=== PATIENT | male | born 1985 | race Caucasian/White ===

== ENCOUNTER 2016-08-02 17:24 | Emergency (ER) | payer BC ==
--- NOTE | 2016-08-02 17:27 | EDM.PDOC ---
ED HPI GENERAL MEDICAL PROBLEM - General Chief Complaint: Chemical Exposure Stated Complaint: [facility] Time Seen by Provider: 08/02/16 17:27 - History of Present Illness INITIAL COMMENTS - FREE TEXT/NARRATIVE: 30-year-old male brought in by [place] [facility] after having a syncopal type event. Patient was cleaning out a oil tanker truck. The patient noticed it did not smell right, perhaps a little stronger than normal. The truck came from [place]. It was reported to the patient that it was freshwater in the tank. Then it was reported that it was flow back water. The patient had loss of consciousness inside the take he was pulled out and responded favorably to fresh air and after 15 minutes was back to normal. Upon arrival here the patient was decontaminated. Patient denies any breathing difficulties or shortness breath at this time he does not have a cough he does not have any pain anywhere. The patient is getting over a cold and has an improving cough. At times he gets some chest discomfort but this lasts a few seconds is fairly sharp and is gone this does not happen anymore than once a week. apparently an H2S monitor was used after the patient was in the ambulance and is reported 208 ppm. - Related Data Allergies Allergy/AdvReac Type Severity Reaction Status Date / Time No Known Allergies Allergy Verified 08/02/16 17:36 Home Meds: Home Meds . [No Known Home Meds] 08/02/16 [History] ED ROS GENERAL - Review of Systems Review Of Systems: See Below Constitutional: Reports: no symptoms HEENT: Reports: No symptoms Respiratory: Reports: No Symptoms, Cough (he has a mild cough this is improving over time and does not seem to be aggravated by this exposure) Cardiovascular: Reports: No symptoms. Denies: Chest pain GI/Abdominal: Reports: No symptoms : Reports: no symptoms Neurological: Reports: Syncope ED EXAM, GENERAL - Physical Exam Exam: See Below Exam Limited By: No limitations General Appearance: alert, no apparent distress, other (patient is alert and oriented and has no evidence of any respiratory distress) Eye Exam: bilateral eye: normal inspection, PERRL Ears: normal external exam, normal canal, hearing grossly normal, normal TMs Nose: normal inspection, normal mucosa, no blood Throat/Mouth: Normal inspection, Normal lips, Normal teeth, Normal gums, Normal oropharynx, Normal voice, No airway compromise Neck: normal inspection, supple, non-tender, full range of motion. No: lymphadenopathy (L), lymphadenopathy (R) Respiratory/Chest: no respiratory distress, lungs clear, normal breath sounds Cardiovascular: regular rate, rhythm, no edema, no murmur GI/Abdominal: normal bowel sounds, soft, non tender Back Exam: normal inspection. No: CVA tenderness (L), CVA tenderness (R) Extremities: normal inspection, no pedal edema Neurological: alert, oriented, normal cognition Skin Exam: Other (he has a few areas of irritated skin at these did not appear to be causing him any distress or irritation) Course - Vital Signs Last Recorded V/S: Last Vital Signs Temp 36.1 C 08/02/16 17:32 Pulse 60 08/02/16 17:32 Resp 12 08/02/16 17:32 BP 118/75 08/02/16 17:32 Pulse Ox 100 08/02/16 17:32 - Orders/Labs/Meds Orders: Active Orders 24 hr Category Date Time Status EKG 12 Lead [EKG Documentation Completion] [RC] STAT Care 08/02/16 17:49 Active Chest 2V [CR] Stat Exams 08/02/16 18:07 Taken SEDIMENTATION RATE AUTO [HEME] Stat Lab 08/02/16 18:17 Received Labs: Laboratory Tests 08/02/16 08/02/16 08/02/16 Range/Units 18:17 18:17 18:17 WBC 12.48 H (4.23-9.07) K/mm3 RBC 5.02 (4.63-6.08) M/mm3 Hgb 14.2 (13.7-17.5) gm/L Hct 42.3 (40.1-51.0) % MCV 84.3 (79.0-92.2) fl MCH 28.3 (25.7-32.2) pg MCHC 33.6 (32.2-35.5) g/dl RDW Std Deviation 41.5 (35.1-43.9) fL Plt Count 259 (163-337) K/mm3 MPV 9.9 (9.4-12.3) fl Neut % (Auto) 85.2 H (34.0-67.9) % Lymph % (Auto) 8.3 L (21.8-53.1) % [place] % (Auto) 5.4 (5.3-12.2) % Eos % (Auto) 0.8 (0.8-7.0) Baso % (Auto) 0.1 (0.1-1.2) % Neut # (Auto) 10.62 H (1.78-5.38) K/mm3 Lymph # (Auto) 1.04 L (1.32-3.57) K/mm3 [place] # (Auto) 0.68 (0.30-0.82) K/mm3 Eos # (Auto) 0.10 (0.04-0.54) K/mm3 Baso # (Auto) 0.01 (0.01-0.08) K/mm3 Manual Slide Review Normal smear PT 11.7 (8.0-13.0) SECONDS INR 1.07 APTT 26 (22-36) SECONDS Sodium 139 (136-145) mEq/L Potassium 4.0 (3.5-5.1) mEq/L Chloride 102 (98-107) mEq/L Carbon Dioxide 27 (21-32) mEq/L Anion Gap 14.0 (5-15) BUN 18 (7-18) mg/dL Creatinine 1.0 (0.7-1.3) mg/dL Est Cr Clr Drug Dosing 102.31 mL/min Estimated GFR (MDRD) > 60 (>60) mL/min BUN/Creatinine Ratio 18.0 (14-18) Glucose 107 H (74-106) mg/dL Calcium 9.1 (8.5-10.1) mg/dL Total Bilirubin 0.5 (0.2-1.0) mg/dL AST 12 L (15-37) U/L ALT 24 (16-63) U/L Alkaline Phosphatase 56 (46-116) U/L Troponin I < 0.017 (0.00-0.056) ng/mL Total Protein 7.4 (6.4-8.2) g/dl Albumin 4.3 (3.4-5.0) g/dl Globulin 3.1 gm/dL Albumin/Globulin Ratio 1.4 (1-2) - Re-Assessments/Exams Free Text/Narrative Re-Assessment/Exam: 08/02/16 19:39 patient has remained stable here in the emergency department. His case was discussed early on with poison control and it was thought perhaps he had a hydrocarbon exposure and this can certainly be the case we did not find out about the H2S until a short time ago. Of concern is workup as his EKG is consistent with acute pericarditis however he does note symptom complex to go at this at this point the patient is stable he has someone they will be with him tonight and can monitor him. 08/02/16 19:47 at this point the patient would really like to go home we will discharge him home he agrees to return with any questions or problems and he agrees to followup in the clinic a couple of days. the patient will be with his Departure - Departure Time of Disposition: 19:47 Disposition: Home, Self-Care 01 Clinical Impression: Chemical exposure, Abnormal EKG Additional Instructions: return to the emergency room with any questions or problems. Followup in hospital clinic on Tuesday for recheck. [phone] - My Orders Last 24 Hours: My Active Orders 08/02/16 17:49 EKG 12 Lead [EKG Documentation Completion] [RC] STAT 08/02/16 18:07 Chest 2V [CR] Stat 08/02/16 18:17 SEDIMENTATION RATE AUTO [HEME] Stat - Assessment/Plan Last 24 Hours: My Active Orders 08/02/16 17:49 EKG 12 Lead [EKG Documentation Completion] [RC] STAT 08/02/16 18:07 Chest 2V [CR] Stat 08/02/16 18:17 SEDIMENTATION RATE AUTO [HEME] Stat
[2016-08-02 17:36] VITALS: BP 118/75
--- NOTE | 2016-08-03 09:13 | CR ---
Chest: Two views of the chest were obtained. Comparison: No previous chest x-rays available. Heart size and mediastinum are normal. Lungs are clear. Bony structures appear within normal limits for the patient's age. Impression: 1. Nothing acute is identified on two-view chest x-ray. Diagnostic code #1
== END 2016-08-02 20:04 | disposition home or self-care (01) ==
LOC: JD.ED 17:24
DX: Z57.5 Occupational exposure to toxic agents in other industries (principal); R94.31 Abnormal electrocardiogram [ECG] [EKG]
CPT/HCPCS: 36415; 71020; 71020-26; 80053; 84484; 85025; 85610; 85652; 85730; 93005; 99284; 99285-25